=== PATIENT | female | born 1995 | race Caucasian/White ===

== ENCOUNTER → 2016-08-14 | Outpatient (CLI) | payer BC, OTHER ==
--- NOTE | 2016-08-14 15:04 | CT ---
EXAMINATION TYPE: CT brain wo/w con DATE OF EXAM: 08/14/2016 2:03 PM COMPARISON: NONE HISTORY: Headaches per order. CT DLP: 2161 mGycm Automated Exposure Control for Dose Reduction was Utilized. TECHNIQUE: CT scan of the head is performed with IV contrast.,CT scan of the head is performed withou t and with without and with IV Contrast, patient injected with 100 ml mL of Omnipaque 300. COMPARISON: None. FINDINGS: Noncontrast images show no acute intracranial hemorrhage or midline shift. The ventricles and sulci are within normal limits in size. Postcontrast images show no suspicious enhancing intrapa renchymal mass. Craniocervical junction is maintained. The globes are intact and the visualized sinus es are clear. IMPRESSION: Negative contrast enhanced head CT exam. Unremarkable study.
== END ==
LOC: RADCTMAIN 13:22
PROVIDERS: ATTEND Family Medicine
DX: R51 Headache (principal)
CPT/HCPCS: 70470; Q9967